=== PATIENT | female | born 1995 | race Caucasian/White ===

== ENCOUNTER → 2019-10-01 10:53 | Outpatient (CLI) | payer BC, SELFPAY ==
[2019-10-01 13:01] LABS: T4 Free Direct 1.55 ng/dL (0.76-1.46)
== END ==
DX: E03.9 Hypothyroidism, unspecified (principal)
CPT/HCPCS: 36415; 84439; 84443

== ENCOUNTER → 2019-11-30 10:50 | Outpatient (CLI) | payer BC, SELFPAY ==
[2019-11-30 11:45] LABS: Thyroid Stim Hormone (TSH) 1.97 uIU/mL (0.358-3.74)
== END ==
PROVIDERS: Nurse Practitioner Family
DX: E03.9 Hypothyroidism, unspecified (principal)
CPT/HCPCS: 36415; 84439; 84443

== ENCOUNTER → 2020-07-14 13:57 | Outpatient (CLI) | payer BC, SELFPAY ==
[2020-07-14 16:18] LABS: Vitamin D,25 Hydroxy 60.4 ng/mL
== END ==
PROVIDERS: PCP Nurse Practitioner Adult Health; Referring Provider Nurse Practitioner Adult Health; Visit Provider Nurse Practitioner Adult Health
DX: E03.9 Hypothyroidism, unspecified (principal)
CPT/HCPCS: 36415; 82306; 84443

== ENCOUNTER → 2021-01-12 10:45 | Outpatient (CLI) | payer BC, SELFPAY ==
[2021-01-12 13:07] LABS: Vitamin D,25 Hydroxy 60.2 ng/mL
[2021-01-12 13:28] LABS: ALB/GLOB Ratio 0.9 RATIO (0.9-2.4); AST(SGOT) 13 U/L (15-37); Alanine Aminotransfer ALT/SGPT 16 U/L (13-56); Albumin, Serum 3.5 g/dL (3.2-5.0); Alkaline Phosphatase 57 U/L (45-117); Anion Gap 8 (5-15); BUN 12 mg/dL (7-18); BUN/Creat Ratio 17.2 RATIO (10-20); Calcium,Total 8.7 mg/dL (8.5-10.1); Chloride 107 mmol/L (98-107); EST Glomerular Filtration Rate 109 mL/min (>60); Est Glom Filt Rate - Afr Amer 132 mL/min (>60); Glucose 83 mg/dL (74-106); Potassium 3.8 mmol/L (3.5-5.1); Protein, Total 7.5 g/dL (6.4-8.2); Sodium Level 142 mmol/L (136-145)
== END ==
PROVIDERS: PCP Nurse Practitioner Adult Health; Referring Provider Nurse Practitioner Adult Health; Visit Provider Nurse Practitioner Adult Health
DX: E03.9 Hypothyroidism, unspecified (principal)
CPT/HCPCS: 36415; 80053; 82306; 84443

== ENCOUNTER 2021-03-02 10:07 | Outpatient (CLI) | payer BC, SELFPAY ==
[2021-03-02 11:16] LABS: Thyroid Stim Hormone (TSH) 3.15 uIU/mL (0.358-3.74)
== END 2021-03-02 23:59 | disposition short-term general hospital (02) ==
LOC: LAB 10:09
PROVIDERS: Visit Provider Nurse Practitioner Adult Health
DX: E03.9 Hypothyroidism, unspecified (principal)
CPT/HCPCS: 36415; 84443

== ENCOUNTER → 2021-07-28 | Outpatient (CLI) | payer MEDICAID, SELFPAY ==
[2021-07-28 11:08] LABS: Vitamin D,25 Hydroxy 53.6 ng/mL
[2021-07-28 11:13] LABS: Thyroid Stim Hormone (TSH) 1.62 uIU/mL (0.358-3.74)
== END | disposition home or self-care (01) ==
PROVIDERS: Referring Provider Nurse Practitioner Adult Health; Visit Provider Nurse Practitioner Adult Health
DX: E03.9 Hypothyroidism, unspecified (principal)
CPT/HCPCS: 36415; 82306; 84443

== ENCOUNTER → 2022-04-01 | Outpatient (CLI) | payer MEDICAID, SELFPAY ==
[2022-04-01 11:02] LABS: Hematocrit 41.7 % (37-47); Hemoglobin 13.3 g/dL (12.0-15.0); Mean Corp Hgb Conc 31.9 g/dL (32-36); Mean Corpuscular Hgb 28.3 pg (27.0-32.0); Mean Corpuscular Volume 88.7 fL (81-99); Mean Platelet Vol. 9.4 fl (6.2-12.0); Platelet Count 319 K/mm3 (150-450); RBC Distribution Width CV 12.7 % (11.6-14.6); RBC Distribution Width SD 41.6 fl (35.1-43.9); White Blood Count 6.9 K/mm3 (4.4-11.0)
[2022-04-01 11:26] LABS: Vitamin D,25 Hydroxy 88.5 ng/mL
[2022-04-01 11:39] LABS: Anion Gap 4 (5-15); BUN 13 mg/dL (7-18); BUN/Creat Ratio 20.6 RATIO (10-20); Calcium,Total 9.3 mg/dL (8.5-10.1); Chloride 107 mmol/L (98-107); Cholesterol 147 mg/dL (200); Creatinine, Serum 0.63 mg/dL (0.55-1.02); EST Glomerular Filtration Rate 121 mL/min (>60); Est Glom Filt Rate - Afr Amer 147 mL/min (>60); Glucose 87 mg/dL (74-106); High Density Lipoprotein 50 mg/dL; Potassium 3.8 mmol/L (3.5-5.1); Sodium Level 139 mmol/L (136-145); T4 Free Direct 1.44 ng/dL (0.76-1.46); Thyroid Stim Hormone (TSH) 0.76 uIU/mL (0.358-3.74); Triglycerides 66 mg/dL; Very Low Density Lipoprotein 13 mg/dL (5-40)
== END | disposition home or self-care (01) ==
LOC: LAB 10:17
PROVIDERS: Nurse Practitioner Family
DX: E03.9 Hypothyroidism, unspecified (principal); E55.9 Vitamin D deficiency, unspecified; Z83.3 Family history of diabetes mellitus
CPT/HCPCS: 36415; 80048; 80061; 82306; 83036; 84439; 84443; 85027

== ENCOUNTER → 2022-04-10 | Outpatient (CLI) | payer MEDICAID, SELFPAY ==
--- NOTE | 2022-04-10 10:33 | US_ITS ---
INDICATION: HYPOTHYROIDISM EXAMINATION: Ultrasound US Thyroid (eg thyroid, parathyroid, parotid) TECHNIQUE: Trejo scale and color doppler imaging was performed of the thyroid gland. COMPARISON: None. FINDINGS: RIGHT THYROID LOBE: 2.8 x 1.3 x 1.3 cm. Homogeneous echotexture with normal vascularity. [No thyroid nodules are present. LEFT THYROID LOBE: A by 1.4 x 0.6 cm. Slightly heterogeneous echotexture with normal vascularity. [There is a 6 x 4 x 3 mm cystic nodule. ISTHMUS: 3 mm. No thyroid nodules are present. Left lymph node is noted measuring 2 x 1.2 x 0.4 cm US/Thyroid IMPRESSION: Mild left thyroid heterogeneity with a mid stomach region. Electronically Signed: Maxx Jaeger DO at 23:25 EST Reading Location ID and State: [facility] / [place] Tel [phone], Service support ,
== END | disposition home or self-care (01) ==
LOC: US 10:33
PROVIDERS: Visit Provider Nurse Practitioner Family
DX: E03.9 Hypothyroidism, unspecified (principal)
CPT/HCPCS: 76536

== ENCOUNTER → 2022-10-12 | Outpatient (CLI) | payer MEDICAID, SELFPAY ==
[2022-10-12 11:30] LABS: Thyroid Stim Hormone (TSH) 1.74 uIU/mL (0.358-3.74)
== END | disposition home or self-care (01) ==
LOC: LAB 10:14
PROVIDERS: Nurse Practitioner Family
DX: E03.9 Hypothyroidism, unspecified (principal)
CPT/HCPCS: 36415; 84443

== ENCOUNTER → 2023-11-29 | Outpatient (CLI) | payer MEDICAID, SELFPAY ==
--- OUTSIDE RECORDS SUMMARY | 2023-11-29 12:23 | XMS RPT_ITS | CCD ---
Author Organization [facility] ion [facility] Care Team Providers Care Eligibility And Occupancy Interviewer Name Role Phone JULIAN SHEFFIELD Admitting Unavailable JULIAN SHEFFIELD Attending Unavailable JULIAN SHEFFIELD Primary Care Unavailable Results Test Name Value Interpretation Reference Range Facil ity PAP TESTon 06-07-2023 ADEQUACY Normal [facility] Comment on above: Order Comment: Speci men Type: FLUID SPECIMEN Ordering Facility: [facility] Address: [address] [place] [address] Result Comment: Unsa tisfactory for evaluation. Limited cellularity due to acellular background material Performed By: #### L [id number] #### [facility] CLIA [id number] [address] [place] [address] [place] CASE REPORT Normal [facility] Comment on above: Order Comment: Speci men Type: FLUID SPECIMEN Ordering Facility: [facility] Address: [address] [place] [address] Result Comment: Gyne cologic Cytology Report Case: [id number] Authorizing Provider: Rissa Euceda NP Collected: 06/07/2023 11:30 AM Ordering Location: [facility] Received: 06/08/2023 10:47 AM [facility] First Screen: Gmitro, Anthony, CT, ASCP Rescreen: Mariann Judd, CT, ASCP Specimen: Pap Test, ThinPrep, Cervix Performed By: #### L [id number] #### [facility] CLIA [id number] [address] [place] [address] [place] CLINICAL HISTORY, CYTOLOGY, GROUP SALES MANAGER Routine Exam Normal [facility] Comment on above: Order Comment: Speci men Type: FLUID SPECIMEN Ordering Facility: [facility] Address: [address] [place] [address] Performed By: #### L [id number] #### [facility] CLIA [id number] [address] [place] [address] [place] FINAL PERFORMING LAB Normal [facility] Comment on above: Order Comment: Speci men Type: FLUID SPECIMEN Ordering Facility: [facility] Address: [address] [place] [address] Result Comment: Tech nical component, vehicle check in clerk screening performed at [facility], [address] [place] [address] [place] [address] CLIA# [id number] Diagnostic interpretation performed at [facility], [address] [place] [id number] CLIA# [id number] Tool Maintenance Worker: Kenton Caba M.D. Performed By: #### L [id number] #### [facility] CLIA [id number] [address] [place] [address] [place] HPV REFLEX HPV if Atypical Normal [facility] Comment on above: Order Comment: Speci men Type: FLUID SPECIMEN Ordering Facility: [facility] Address: [address] [place] [address] Performed By: #### L [id number] #### [facility] CLIA [id number] [address] [place] [address] [place] INTERPRETATION, CYTOLOGY, GROUP SALES MANAGER Normal [facility] Comment on above: Order Comment: Speci men Type: FLUID SPECIMEN Ordering Facility: [facility] Address: [address] [place] [address] Result Comment: Unab le to perform interpretation due to unsatisfactory specimen. Performed By: #### L [id number] #### [facility] CLIA [id number] [address] [place] [address] [place] LMP 05/23/2023 Normal [facility] Comment on above: Order Comment: Speci men Type: FLUID SPECIMEN Ordering Facility: [facility] Address: [address] [place] [address] Performed By: #### L [id number] #### [facility] CLIA [id number] [address] [place] [address] [place] PAP DISCLAIMER COMMENT The Pap Smear is a screening test for cervical cancer. False negative results occur with all screening tests, emphasizing the need for rescreening at recommended intervals, and clinical correlation. Normal [facility] Comment on above: Order Comment: Speci men Type: FLUID SPECIMEN Ordering Facility: [facility] Address: [address] [place] [address] Performed By: #### L [id number] #### [facility] CLIA [id number] [address] [place] [address] [place] PAP IDENTITY MANAGEMENT CONSULTANT COMMENT This specimen has be en analyzed by the ThinPrep Imaging System, an automated imaging and review system, which assists the laboratory in evaluating cells on ThinPrep Pap tests. Following automated imaging, selected madrigal from every slide are reviewed by a vehicle check in clerk. Normal [facility] Comment on above: Order Comment: Speci men Type: FLUID SPECIMEN Ordering Facility: [facility] Address: [address] [place] [address] Performed By: #### L [id number] #### [facility] CLIA [id number] [address] [place], [place] [id number] [place] EMERGENCY REPORTon 3 EMERGENCY REPORT [facility] EMERGENCY ROOM REPORT NAME ACCOUNT SEX AGE ADMIT DISCHARGE PT MED. RECORD# NUMBER DATE DATE TYPE JENNIFER [id number] F 27 12/26/22 12/26/22 3 [facility] [id number] ROOM: ER DATE OF : 1995 DICTATING PHYSICIAN: Julian Sheffield CHIEF COMPLAINT: Abdominal pain with vomiting and diarrhea. HISTORY OF PRESENT ILLNESS: The patient states that yesterday during the day she felt well. She awoke early this morning having had some diarrhea that she was incontinent of. Shortly after that, she had several episodes of vomiting and continued to have some mild diarrhea through the day as well. She has not had fever or chills. She does complain of some intermittent crampy abdominal pain. She states that they ate at a restaurant last night in [place] and is concerned that she might have food poisoning, though is unsure if other people in the alliance party were sick. She states that she thinks her mom may have not felt well today. PAST MEDICAL HISTORY: Past medical history is significant for a seizure disorder, otherwise negative. PAST SURGICAL HISTORY: No previous surgeries. MEDICATIONS: Per med rec list. SOCIAL HISTORY: She lives at home. She does not smoke. She drinks alcohol rarely. She denies other drug use. REVIEW OF SYSTEMS: Negative other than what is mentioned. PHYSICAL EXAMINATION: GENERAL: This is a 27-year-old female alert, appropriate, and does not appear toxic. SKIN: Her skin is pink, warm, and dry. HEENT: Essentially all within normal limits. NECK: Her neck is supple without adenopathy. LUNGS: Lungs are clear without crackles or wheezes. CARDIAC: Cardiac exam is regular rhythm without ectopy or murmurs, gallops or rubs. ABDOMEN: Abdomen is generally soft without appreciable tenderness. No guarding or rebound. EXTREMITIES: She moves extremities appropriately without any focal weaknesses. Good peripheral pulses. Good capillary refill. VITAL SIGNS: Temperature 101, pulse 120, respirations 14, and blood pressure 108/77. DIAGNOSTIC DATA: Laboratory studies showed a white count of 10,800 with 92% neutrophils, H&H 12.9 and 39.2. CMP: Sodium was 139, potassium 3.3. BUN and creatinine were 12 and 0.65. Lipase was normal. CRP is 1.0. Page 1 of 2 [facility] RODRIGUEZ Emergency Room Report RODRIGUEZ HERBERT : 1995 EMERGENCY DEPARTMENT COURSE AND TREATMENT: Her O2 saturation was 99%. IV was placed. She was given a liter and a half to 2 liters of IV fluids. She was given Zofran IV. She did feel improved with that, but was complaining of more of a heartburn at that point, not nausea. I did give her some Protonix and Maalox, and she states that seemed to help. However, when she got up to go to the bathroom, she started getting more burning in her chest, though not quite as severe. The patient presents with what seems to be an acute viral gastroenterology. She does not have any evidence of an acute abdomen. DIAGNOSIS: Acute viral gastroenterology. PLAN/DISPOSITION: She will be discharged with a prescription for Zofran. I recommended [id number] famotidine and Maalox as well, Tylenol or ibuprofen if needed for fever. She is to return if her symptoms worsen. Dictated By: Julian Sheffield MD 12/26/22 17:43 JOB #: [id number] Transcribed By: am 12/28/22 14:23 Electronically signed by: ARTHUR Sheffield M.D. 12/30/22 17:10 Page 2 of 2 [facility] RODRIGUEZ Emergency Room Report Normal [facility] C-REACTIVE PROTEINon 023 CRP 1.00 mg/dl High 0.00 - 0.90 [facility] Comment on above: Performed By: #### 2 [id number] #### [facility],[address] [place] [address] CBC + DIFFon 12-26-2022 Baso # 0.00 x10EE3/UL Normal 0.00 - 0.10 [facility] Comment on above: Performed By: #### 2 63942 #### [facility],[address] [place] [address] Basophils/100 WBC (Bld) 0.1 % Normal 0.0 - 2.0 [facility] Comment on above: Performed By: #### 2 09856 #### [facility],[address] [place] [address] CBC + DIFF Normal [facility] Comment on above: Result Comment: CBC- COMPLETE BLOOD COUNT Performed By: #### 2 92461 #### [facility],[address] [place] [address] EO # 0.00 x10EE3/UL Normal 0.00 - 0.50 [facility] Comment on above: Performed By: #### 2 69946 #### [facility],[address] [place] [address] Eosinophils/100 WBC (Bld) 0.1 % Normal 0.0 - 7.0 [facility] Comment on above: Performed By: #### 2 41797 #### [facility],[address] [place] [address] Erythrocyte distribution width (RBC) [Ratio] 13.3 % Normal 12.0 - 15.6 [facility] Comment on above: Performed By: #### 2 02297 #### [facility],[address] [place] [address] Hematocrit (Bld) [Volume fraction] 39.2 % Normal 34.0 - 46.0 [facility] Comment on above: Performed By: #### 2 15447 #### [facility],[address] [place] [address] Hemoglobin (Bld) [Mass/Vol] 12.9 g/dL Normal 12.0 - 16.0 [facility] Comment on above: Performed By: #### 2 23847 #### [facility],[address] [place] [address] Lymph # 0.50 x10EE3/UL Low 0.80 - 2.80 [facility] Comment on above: Performed By: #### 2 16557 #### [facility],[address] [place], [place] [id number] Lymphocytes/100 WBC (Bld) 4.7 % Low 20.0 - 45.0 [facility] Comment on above: Performed By: #### 2 86893 #### [facility],[address] [place], [place] [id number] MANUAL DIFF N/A Normal [facility] Comment on above: Performed By: #### 2 15387 #### [facility],[address] [place], [place] [id number] MCH (RBC) [Entitic mass] 29 pg Normal 27 - 33 [facility] Comment on above: Performed By: #### 2 39664 #### [facility],[address] [place] [address] MCHC 33 X10 3 Normal 32 - 36 [facility] Comment on above: Performed By: #### 2 62906 #### [facility],[address] [place] [address] MCV (RBC) [Entitic vol] 87 fL Normal 80 - 99 [facility] Comment on above: Performed By: #### 2 25819 #### [facility],[address] [place] [address] Mccreary # 0.30 x10EE3/UL Normal 0.20 - 1.00 [facility] Comment on above: Performed By: #### 2 52218 #### [facility],[address] [place] [address] MONOS % 2.9 % Normal 0.0 - 10.0 [facility] Comment on above: Performed By: #### 2 30299 #### [facility],[address] [place] [address] Morphology Han (Bld) [Interp] N/A Normal [facility] Comment on above: Result Comment: {CD] Performed By: #### 2 25187 #### [facility],[address] [place] [address] Neut # 10.00 x10EE3/UL High 1.50 - 7.10 [facility] Comment on above: Performed By: #### 2 30062 #### [facility],[address] [place] [address] Neutrophils/100 WBC (Bld) 92.2 % High 46.0 - 76.0 [facility] Comment on above: Performed By: #### 2 98008 #### [facility],[address] [place] [address] PLATELET 290 x10EE3/UL Normal 150 - 450 [facility] Comment on above: Performed By: #### 2 91710 #### [facility],[address] [place] [address] Platelet mean volume (Bld) [Entitic vol] 7.6 fL Normal 6.6 - 10.5 [facility] Comment on above: Result Comment: AUTO MATED DIFFERENTIAL Performed By: #### 2 88294 #### [facility],[address] [place], [place] [id number] RBC 4.51 x 10EE6/UL Normal 4.10 - 5.30 [facility] Comment on above: Performed By: #### 2 66073 #### [facility],[address] [place], [place] [id number] WBC 10.8 x 10EE3/UL Normal 4.5 - 10.8 [facility] Comment on above: Performed By: #### 2 15757 #### [facility],[address] [place], [place] [id number] CMP with eGFRon 12-26-2022 AGE 27 years Normal [facility] Comment on above: Performed By: #### 2 13904 #### [facility],[address] [place], [place] [id number] Albumin [Mass/Vol] 3.5 g/dL Normal 3.4 - 5.0 [facility] Comment on above: Performed By: #### 2 32122 #### [facility],[address] [place], [place] [id number] Albumin/Globulin [Mass ratio] 0.9 {ratio} Normal 0.9 - 1.6 [facility] Comment on above: Performed By: #### 2 08809 #### [facility],[address] [place] [address] ALK PHOS 56 U/L Normal 46 - 116 [facility] Comment on above: Performed By: #### 2 91720 #### [facility],[address] [place], [place] [id number] ALT [Catalytic activity/Vol] 18 U/L Normal 14 - 59 [facility] Comment on above: Performed By: #### 2 08704 #### [facility],[address] [place] [address] Anion gap [Moles/Vol] 13 mmol/L Normal 10 - 20 [facility] Comment on above: Performed By: #### 2 13060 #### [facility],[address] [place] [address]23 AST [Catalytic activity/Vol] 11 U/L Low 13 - 39 [facility] Comment on above: Performed By: #### 2 63017 #### [facility],[address] [place] [address] B/C RATIO 18 ratio Normal 0 - 30 [facility] Comment on above: Performed By: #### 2 96137 #### [facility],[address] [place] [address] Bilirubin [Mass/Vol] 0.4 mg/dL Normal 0.2 - 1.0 [facility] Comment on above: Performed By: #### 2 30962 #### [facility],[address] [place] [address]28 Calcium [Mass/Vol] 8.6 mg/dL Normal 8.5 - 10.1 [facility] Comment on above: Performed By: #### 2 02906 #### [facility],[address] [place] [address]395 Chloride [Moles/Vol] 105 mmol/L Normal 98 - 107 [facility] Comment on above: Performed By: #### 2 37543 #### [facility],[address] [place] [address]40[address] CMP with eGFR Normal [facility] Comment on above: Result Comment: COMP REHENSIVE METABOLIC PANEL Performed By: #### 2 99290 #### [facility],[address] [place] [address]7460 CO2 [Moles/Vol] 24.0 mmol/L Normal 21.0 - 32.0 [facility] Comment on above: Performed By: #### 2 46968 #### [address] [address] Creatinine [Mass/Vol] 0.65 mg/dL Normal 0.55 - 1.02 [facility] Comment on above: Performed By: #### 2 10439 #### [place] [address] GFR/1.73 sq M.predicted among non-blacks MDRD (S/P/Bld) [Vol rate/Area] mL/min/{1.73_m2} Normal 60 - 999 [facility] Comment on above: Performed By: #### 2 95811 #### [place] [address] Result Comment: ACCO RDING TO THE NATIONAL KIDNEY DISEASE EDUCATION PROGRAM(NKDE), A NORMAL eGFR IS A VALUE GREATER THAN OR EQUAL TO 60 ML/MIN/1.73 SQ METERS. CHRONIC KIDNEY DISEASE: <60mL/MIN/1.73 SQ METERS KIDNEY FAILURE: <15mL/MIN/1.73 SQ METERS THIS TEST SHOULD ONLY BE USED FOR PATIENTS 18 YEARS OF AGE AND OLDER. Globulin (S) [Mass/Vol] 3.8 g/dL Normal 1.5 - 3.8 [facility] Comment on above: Performed By: #### 2 67668 #### [address] [address] Glucose [Mass/Vol] 89 mg/dL Normal 74 - 106 [facility] Comment on above: Performed By: #### 2 04343 #### [address] [address] Potassium [Moles/Vol] 3.3 mmol/L Low 3.5 - 5.1 [facility] Comment on above: Performed By: #### 2 22949 #### [address] [address] Protein [Mass/Vol] 7.3 g/dL Normal 6.4 - 8.2 [facility] Comment on above: Performed By: #### 2 56949 #### [facility],[address] [place], [place] [id number] Sodium [Moles/Vol] 139 mmol/L Normal 136 - 145 [facility] Comment on above: Performed By: #### 2 16617 #### [facility],[address] [place] [address] Urea nitrogen [Mass/Vol] 12 mg/dL Normal 7 - 18 [facility] Comment on above: Performed By: #### 2 88368 #### [facility],[address] [place] [address] LIPASEon 12-26-2022 Lipase [Catalytic activity/Vol] 109.0 U/L Normal 73.0 - 393 [facility] Comment on above: Performed By: #### 2 36790 #### [facility],[address] [place] [address] Encounters Encounter Date Encounter Type Care Provider Facility Start: 12-26-2022 End: 12-26-2022 Emergency department patient visit JULIAN SHEFFIELD [facility] Payers Date Payer Category Payer Unknown [id number] Unknown [id number] Summary Purpose Family History No Family History Records FoundNo Family History Records Found Advance Directives No Advanced Directives Records FoundNo Advanced Directives Records Found Additional Source Comments INFORMATION SOURCE (unrecogn ized section and content) DATE CREATED AUTHOR 01/01/2023 [facility] DATE CREATED AUTHOR AUTHOR'S ORGANIZ ATION 06/21/2023 [facility] FOR RECORDS PERTAINING TO PATIENTS WHO ARE OR HAVE BEEN ENROLLED IN A CHEMICAL DEPENDENCY/SUBSTANCEABUSE PROGRAM, SOME INFORMATION MAY BE OMITTED. This clinical summary was aggregated from multiple sources. Caution should be exercised in using it in the provision of clinical care. This summary normalizes information from multiple sources, and as a consequence, information in this document may materially change the coding, format and clinical context of patient data. In addition, data may be omitted in some cases. CLINICAL DECISIONS SHOULD BE BASED ON THE PRIMARY CLINICAL RECORDS. [employer] [facility]. provides no warranty or guarantee of the accuracy or completeness of information in this document.
[2023-11-29 12:50] LABS: Hematocrit 42.1 % (37-47); Hemoglobin 13.6 g/dL (12.0-15.0); Mean Corp Hgb Conc 32.3 g/dL (32-36); Mean Corpuscular Hgb 28.5 pg (27.0-32.0); Mean Corpuscular Volume 88.3 fL (81-99); Mean Platelet Vol. 9.1 fl (6.2-12.0); Platelet Count 356 K/mm3 (150-450); RBC Distribution Width CV 12.3 % (11.6-14.6); RBC Distribution Width SD 39.9 fl (35.1-43.9); Red Blood Count 4.77 M/mm3 (4.2-5.4); White Blood Count 5.3 K/mm3 (4.4-11.0)
[2023-11-29 13:23] LABS: Vitamin D,25 Hydroxy 39.8 ng/mL
[2023-11-29 13:29] LABS: ALB/GLOB Ratio 0.9 RATIO (0.9-2.4); AST(SGOT) 17 U/L (15-37); Alanine Aminotransfer ALT/SGPT 25 U/L (13-56); Albumin, Serum 3.8 g/dL (3.2-5.0); Alkaline Phosphatase 77 U/L (45-117); Anion Gap 5 (5-15); BUN 6 mg/dL (7-18); BUN/Creat Ratio 9.5 RATIO (10-20); Calcium,Total 9.2 mg/dL (8.5-10.1); Chloride 106 mmol/L (98-107); Creatinine, Serum 0.63 mg/dL (0.55-1.02); EST Glomerular Filtration Rate 119 mL/min (>60); Est Glom Filt Rate - Afr Amer 144 mL/min (>60); Globulin 4.1 g/dL (2.2-4.2); Glucose 84 mg/dL (74-106); Potassium 3.7 mmol/L (3.5-5.1); Protein, Total 7.9 g/dL (6.4-8.2); Sodium Level 137 mmol/L (136-145); T4 Free Direct 1.77 ng/dL (0.76-1.46); Thyroid Stim Hormone (TSH) 0.114 uIU/mL (0.358-3.740)
== END | disposition home or self-care (01) ==
LOC: VSLAB 12:03
PROVIDERS: PCP Nurse Practitioner Family; Visit Provider Nurse Practitioner Family
DX: E06.9 Thyroiditis, unspecified (principal); E55.9 Vitamin D deficiency, unspecified; Z83.3 Family history of diabetes mellitus
CPT/HCPCS: 36415; 80053; 82306; 83036; 84439; 84443; 85027